=== PATIENT | male | born 1975 | race Hispanic/Latino ===

== ENCOUNTER 2017-11-06 15:35 | Emergency (ER) | payer MEDICARE, OTHER ==
[2017-11-06] MEDS ORDERED: PREDNISONE 20 MG TABLET ONE (15:59)
[2017-11-06] MEDS ORDERED: KETOROLAC TROMETHAMINE 60 MG/2 ML VIAL ONE (15:59)
[2017-11-06] MEDS ORDERED: CYCLOBENZAPRINE HCL 10 MG TABLET ONE (16:00)
== END 2017-11-06 16:41 | disposition home or self-care (01) ==
LOC: EDH 15:35
DX: G56.91 Unspecified mononeuropathy of right upper limb (principal); Z88.0 Allergy status to penicillin; Z88.6 Allergy status to analgesic agent; X50.3XXA Overexertion from repetitive movements, initial encounter; Y93.89 Activity, other specified; Y92.69 Other specified industrial and construction area as the place of occurrence of the external cause; Y99.8 Other external cause status
CPT/HCPCS: 93005; 96372; 99283; J1885

== ENCOUNTER 2017-11-20 15:31 | Emergency (ER) | payer MEDICARE, OTHER ==
[2017-11-20] MEDS ORDERED: DEXAMETHASONE SOD PHOSPHATE 10MG/ML 1ML VIAL ONE (16:11)
[2017-11-20] MEDS ORDERED: KETOROLAC TROMETHAMINE 60 MG/2 ML VIAL ONE (16:11)
== END 2017-11-20 16:25 | disposition home or self-care (01) ==
LOC: EDH 15:31
DX: M77.9 Enthesopathy, unspecified (principal); Z88.0 Allergy status to penicillin; Z88.6 Allergy status to analgesic agent; Z87.891 Personal history of nicotine dependence
CPT/HCPCS: 29125; 96372 ×2; 99284; J1100; J1885